=== PATIENT | female | born 1945 | race Caucasian/White ===

== ENCOUNTER → 2017-02-12 | Day surgery (SDC) | payer OTHER, MEDICARE ==
[~2017-02-12] MED LIST: NO MEDICATIONS
--- NOTE | ~2017-02-12 | OR ---
Unit #: [id number] #: [id number] Patient: ESTEBAN BRADFORD [id number] [address] [address] [id number] O MR#: [id number] NAME: ESTEBAN BRADFORD ROOM: Date of Procedure: 02/12/2017 Admission Date: 02/12/2017 Surgeon: Ap Quinteros M.D. : 1945 Attending Physician: Ap Quinteros M.D. Primary Care Physician: Armaan Chan Jr., M.D. OPERATIVE REPORT PROCEDURES PERFORMED Colonoscopy with snare polypectomy to cecum. INDICATIONS FOR PROCEDURE A 71-year-old female, average risk for colorectal cancer, here for screening colonoscopy. MEDICATIONS Monitored anesthesia. POSTOPERATIVE FINDINGS 1. Two polyps, cecum, 4 to 6 mm each, snared and sent for histopathology. 2. Very poor prep. Extensive lavaging was done. Some areas still not visualized. PLAN Repeat colonoscopy after 3 years. DESCRIPTION OF PROCEDURE The patient was explained of the procedure, risks, and benefits along with risks and benefits of anesthesia. She was brought to the endoscopy room. Propofol anesthesia was given. Rectal exam was done, which was normal. Colonoscope was lubricated, passed up the rectum, advanced under direct vision all the way to the cecum. Cecum was identified by ileocecal valve and appendiceal orifice. I then started to pull the scope out carefully looking. Findings have been described above. I retroflexed in the rectum, small hemorrhoids seen. Scope was gently pulled out. She tolerated it well. Dictated by... Christie Mitchell/giulia TD: 02/12/2017 14:24 JOB #: [id number] Unit #: [id number] #: [id number] Patient: ESTEBAN BARDFORD OPERATIVE REPORT Page 1 of 1 X Ap Quinteros MD PROCEDURE OPERATIVE NOTE
== END | disposition home or self-care (01) ==
LOC: COPS 07:49
DX: Z12.11 Encounter for screening for malignant neoplasm of colon (principal); D12.0 Benign neoplasm of cecum; K64.9 Unspecified hemorrhoids; K21.9 Gastro-esophageal reflux disease without esophagitis; Z88.6 Allergy status to analgesic agent
CPT/HCPCS: 88305